=== PATIENT | male | born 1970 | race Caucasian/White ===

== ENCOUNTER 2020-02-16 18:50 | Emergency (ER) | payer BC ==
[2020-02-16 19:02] VITALS: BP 134/69; PULSE 100; TEMP 98.4; BMI 28.0
== END 2020-02-16 20:32 | disposition home or self-care (01) ==
LOC: JER 18:50
DX: Z11.59 Encounter for screening for other viral diseases (principal)
CPT/HCPCS: 71046-TC-FY; 99283-25